=== PATIENT | male | born 1955 | race African-American/Black ===

== ENCOUNTER 2021-12-26 19:15 | Emergency (ER) | payer OTHER, MEDICAID ==
[~2021-12-26] VITALS: Ht 180.3 cm; Wt 70.0 kg
[2021-12-26 19:26] VITALS: BP 144/88
[2021-12-26] MEDS ORDERED: SODIUM CHLORIDE 0.9% 1000ML BAG (SEPSIS BOLUS) IV ONE (20:00)
== END 2021-12-26 21:21 | disposition left against medical advice (07) ==
LOC: ER 19:15
DX: J45.901 Unspecified asthma with (acute) exacerbation (principal); R06.00 Dyspnea, unspecified; I11.0 Hypertensive heart disease with heart failure; I50.9 Heart failure, unspecified
CPT/HCPCS: 93005; 99283; J7030

== ENCOUNTER 2022-10-28 16:42 | Inpatient (IN) | payer MEDICARE, MEDICAID ==
[~2022-10-28] VITALS: Ht 177.8 cm; Wt 69.9 kg
[2022-10-28] MEDS ORDERED: ACETAMINOPHEN 325MG TABLET PO ONE (17:00)
[2022-10-28 17:15] LABS: BASOPHILS % 0.4 % (0.0-2.0); EOSINOPHILS % 1.2 % (0.0-5.0); HEMATOCRIT. 44.7 % (42.0-52.0); HEMOGLOBIN. 15.1 g/dL (14.0-18.0); LYMPHOCYTES % 11.4 % (20.0-50.0); MEAN CORPUSCULAR HEMOGLOBIN 30.7 pg (28.0-32.0); MEAN CORPUSCULAR VOLUME 90.9 fL (80.0-94.0); MEAN PLATELET VOLUME 7.7 fl (7.4-10.4); MONOCYTES % 11.7 % (2.0-8.0); NEUTROPHILS % 75.3 % (40.0-76.0); PLATELET 226 x1000/uL (130-400); RED BLOOD CELL COUNT 4.92 mill/uL (4.7-6.1); RED CELL DISTRIBUTION WIDTH 13.7 % (11.6-14.6)
[2022-10-28] MEDS ORDERED: IPRATROPIUM BROMIDE (0.02%) 0.5MG/2.5ML NEB HHN STA (17:19)
[2022-10-28] MEDS ORDERED: ALBUTEROL (0.083%) 2.5MG/3ML NEB HHN STA (17:19)
[2022-10-28] MEDS ORDERED: METHYLPREDNISOLONE SOD SUCC 125 MG/2 ML VIAL IV STA (17:19)
[2022-10-28 17:30] LABS: CHLORIDE 101 mEq/L (98-107)
[2022-10-28 17:58] LABS: BG BASE EXCESS 2.8 mmol/L (-2.0-2.0); BG FRACTION INSPIRED OXYGEN 28; BG HCO3 ACT 30.1 mmol/L (22.0-26.0); BG METHEMOGLOBIN 0.4 % (0.0-1.5); BG OXYGEN SATURATION 95.9 % (92.0-98.5); BG OXYHEMOGLOBIN 94.6 % (94.0-97.0); BG PCO2 57.1 mmHg (35.0-45.0); BG PO2 87.6 mmHg (75.0-100.0); BG SAMPLE SITE RIGHT RADIAL; BG TOTAL HEMOGLOBIN 15.2 g/dL (12.0-18.0); BG VENT MODE NASAL CANNULA
[2022-10-28] MEDS ORDERED: IPRATROPIUM BROMIDE (0.02%) 0.5MG/2.5ML NEB HHN NR (20:00)
[2022-10-28] MEDS ORDERED: ALBUTEROL (0.083%) 2.5MG/3ML NEB HHN NR (20:00)
[2022-10-29] MEDS ORDERED: MAGNESIUM/ALUMINUM HYDROXIDE/SIMETHICONE 30ML UDC PO PRN (10:15)
[2022-10-29] MEDS ORDERED: GUAIFENESIN 200MG/10ML SUGAR FREE UDC PO PRN (10:15)
[2022-10-29] MEDS ORDERED: DOCUSATE SODIUM 100MG CAPSULE PO PRN (10:15)
[2022-10-29] MEDS ORDERED: ACETAMINOPHEN 325MG TABLET PO PRN ×2 (10:15)
[2022-10-29] MEDS ORDERED: DEXTROSE 50% WATER 50ML SYRINGE IV PRN (10:15)
[2022-10-29] MEDS ORDERED: IPRATROPIUM/ALBUTEROL 0.5-3(2.5)MG/3ML NEB HHN PRN (10:15)
[2022-10-29] MEDS ORDERED: METHYLPREDNISOLONE SOD SUCC 40 MG/ML VIAL IV SCH (10:30)
[2022-10-29] MEDS ORDERED: BLOOD SUGAR DIAGNOSTIC STRIP TEST SCH (11:50)
[2022-10-29 12:00] VITALS: BP 149/88
[2022-10-29] MEDS: ENOXAPARIN 40MG/0.4ML SYR SUBCUT SCH (12:11)
[2022-10-29] MEDS: GUAIFENESIN 600MG ER TABLET PO SCH ×2 (12:11→21:34)
[2022-10-29] MEDS: BLOOD SUGAR DIAGNOSTIC STRIP TEST SCH ×3 (12:25→21:39)
[2022-10-29] MEDS ORDERED: AZITHROMYCIN 500 MG TABLET PO NR (12:30)
[2022-10-29] MEDS ORDERED: SODIUM CHLORIDE 0.9% 1,000 ML IV SCH (12:30)
[2022-10-29] MEDS ORDERED: LORAZEPAM 0.5MG TABLET PO NR (15:15)
[2022-10-29] MEDS: IPRATROPIUM/ALBUTEROL 0.5-3(2.5)MG/3ML NEB HHN SCH ×2 (15:30→20:22)
[2022-10-29 16:00] VITALS: BP 160/92
[2022-10-29] MEDS: CEFTRIAXONE 1,000 MG in DEXTROSE 5% WATER 50 ML IV SCH (16:02)
[2022-10-29 18:18] LABS: CLARITY URINE CLEAR (CLEAR); COLOR URINE YELLOW (YELLOW); KETONES URINE NEGATIVE (NEGATIVE); LEUKOCYTE ESTERASE URINE NEGATIVE (NEGATIVE); NITRITE URINE NEGATIVE (NEGATIVE); OCCULT BLOOD URINE 2+ (NEGATIVE); PH URINE 5.5 (4.5-8.0); PROTEIN URINE 3+ (NEGATIVE); SPECIFIC GRAVITY URINE 1.026 (1.005-1.030)
[2022-10-29 18:28] LABS: *AMPHETAMINES SCREEN URINE NEGATIVE (NEGATIVE); *BARBITURATES SCREEN URINE NEGATIVE (NEGATIVE); *BENZODIAZEPINES SCREEN URINE NEGATIVE (NEGATIVE); *COCAINE SCREEN URINE NEGATIVE (NEGATIVE); CANNABINOID URINE SCREEN PRESUMTIVE POSITIVE (NEGATIVE); METHADONE URINE SCREEN NEGATIVE (NEGATIVE); OPIATES URINE SCREEN NEGATIVE (NEGATIVE); PHENCYCLIDINE URINE SCREEN NEGATIVE (NEGATIVE)
[2022-10-29 20:00] VITALS: BP 149/75
[2022-10-29] MEDS: BUDESONIDE 0.5MG/2ML NEB HHN SCH (20:23)
[2022-10-29] MEDS: PANTOPRAZOLE 40MG DR TABLET PO SCH (21:34)
[2022-10-30] VITALS: BP 128/62
[2022-10-30] MEDS: IPRATROPIUM/ALBUTEROL 0.5-3(2.5)MG/3ML NEB HHN SCH ×4 (01:59→20:58)
[2022-10-30 04:00] VITALS: BP 132/84
[2022-10-30 06:47] LABS: HEMATOCRIT. 43.6 % (42.0-52.0); HEMOGLOBIN. 14.4 g/dL (14.0-18.0); MEAN CORPUSCULAR HEMOGLOBIN 30.2 pg (28.0-32.0); MEAN CORPUSCULAR VOLUME 91.5 fL (80.0-94.0); MEAN PLATELET VOLUME 8.6 fl (7.4-10.4); PLATELET 208 x1000/uL (130-400); RED BLOOD CELL COUNT 4.76 mill/uL (4.7-6.1); RED CELL DISTRIBUTION WIDTH 13.8 % (11.6-14.6)
[2022-10-30] MEDS: PANTOPRAZOLE 40MG DR TABLET PO SCH (06:47)
[2022-10-30] MEDS: BLOOD SUGAR DIAGNOSTIC STRIP TEST SCH ×4 (07:06→21:21)
[2022-10-30] MEDS: BUDESONIDE 0.5MG/2ML NEB HHN SCH ×2 (07:40→20:57)
[2022-10-30 08:00] VITALS: BP 126/70
[2022-10-30] MEDS: GUAIFENESIN 600MG ER TABLET PO SCH ×2 (08:11→21:52)
[2022-10-30] MEDS: AZITHROMYCIN 250 MG TABLET PO SCH (08:11)
[2022-10-30] MEDS ORDERED: METHYLPREDNISOLONE SOD SUCC 125 MG/2 ML VIAL IV SCH (09:00)
[2022-10-30 09:57] LABS: CHLORIDE 103 mEq/L (98-107)
[2022-10-30 10:14] LABS: HDL CHOLESTEROL 67 mg/dL (40-59); LDL CHOLESTEROL 109 mg/dL (5-100); T4 FREE 0.87 ng/dL (0.76-1.46)
[2022-10-30 12:00] VITALS: BP 156/92
[2022-10-30] MEDS: CLONIDINE 0.1MG TABLET PO PRN (13:19)
[2022-10-30] MEDS: ENOXAPARIN 40MG/0.4ML SYR SUBCUT SCH (13:20)
[2022-10-30] MEDS: CEFTRIAXONE 1,000 MG in DEXTROSE 5% WATER 50 ML IV SCH (13:25)
[2022-10-30] MEDS: ACETYLCYSTEINE 200MG/ML 20% VIAL 4ML INH SCH ×2 (14:00→20:58)
[2022-10-30] MEDS ORDERED: HYDR25TA PO (14:36)
[2022-10-30] MEDS ORDERED: ATOR40TA70 PO (14:36)
[2022-10-30] MEDS ORDERED: AMLO10TA80 PO (14:36)
[2022-10-30] MEDS ORDERED: ATORVASTATIN CALCIUM 40MG TABLET PO SCH (14:45)
[2022-10-30 16:00] VITALS: BP 141/98
[2022-10-30] MEDS ORDERED: SODIUM CHLORIDE 0.45% 1,000 ML IV ONE (16:30)
[2022-10-30 17:18] LABS: PLATELET ESTIMATE NORMAL
[2022-10-30] MEDS: HYDROCHLOROTHIAZIDE 25MG TABLET PO SCH (18:17)
[2022-10-30] MEDS: AMLODIPINE 10MG TABLET PO SCH (18:17)
[2022-10-30] MEDS: METHYLPREDNISOLONE SOD SUCC 125 MG/2 ML VIAL IV SCH ×2 (18:20→21:49)
[2022-10-30 20:00] VITALS: BP 156/60
[2022-10-30] MEDS: FAMOTIDINE 20MG TABLET PO SCH (21:52)
[2022-10-30] MEDS: ATORVASTATIN CALCIUM 40MG TABLET PO SCH (21:52)
[2022-10-31 00:30] VITALS: BP 147/93
[2022-10-31] MEDS: IPRATROPIUM/ALBUTEROL 0.5-3(2.5)MG/3ML NEB HHN SCH ×4 (00:51→21:32)
[2022-10-31] MEDS: METHYLPREDNISOLONE SOD SUCC 125 MG/2 ML VIAL IV SCH ×4 (03:05→22:00)
[2022-10-31 04:21] LABS: HEMATOCRIT. 42.9 % (42.0-52.0); HEMOGLOBIN. 14.4 g/dL (14.0-18.0); MEAN CORPUSCULAR HEMOGLOBIN 30.3 pg (28.0-32.0); MEAN CORPUSCULAR VOLUME 90.4 fL (80.0-94.0); MEAN PLATELET VOLUME 7.9 fl (7.4-10.4); PLATELET 218 x1000/uL (130-400); RED BLOOD CELL COUNT 4.75 mill/uL (4.7-6.1); RED CELL DISTRIBUTION WIDTH 13.8 % (11.6-14.6)
[2022-10-31 05:03] VITALS: BP 149/84
[2022-10-31 05:15] LABS: CHLORIDE 99 mEq/L (98-107)
[2022-10-31] MEDS: BLOOD SUGAR DIAGNOSTIC STRIP TEST SCH ×4 (06:14→22:07)
[2022-10-31] MEDS: HYDROCHLOROTHIAZIDE 25MG TABLET PO SCH (07:56)
[2022-10-31] MEDS: AMLODIPINE 10MG TABLET PO SCH (07:56)
[2022-10-31] MEDS: AZITHROMYCIN 250 MG TABLET PO SCH (07:57)
[2022-10-31] MEDS: BUDESONIDE 0.5MG/2ML NEB HHN SCH ×2 (07:57→21:32)
[2022-10-31] MEDS: ACETYLCYSTEINE 200MG/ML 20% VIAL 4ML INH SCH ×3 (07:57→21:32)
[2022-10-31] MEDS: FAMOTIDINE 20MG TABLET PO SCH ×2 (07:57→22:02)
[2022-10-31] MEDS: GUAIFENESIN 600MG ER TABLET PO SCH ×2 (07:57→22:02)
[2022-10-31 08:05] VITALS: BP 167/82
[2022-10-31] MEDS ORDERED: MONT-46 PO (10:09)
[2022-10-31] MEDS ORDERED: DOCU250C14 PO (10:11)
[2022-10-31] MEDS ORDERED: OMEP20TA23 PO (10:12)
[2022-10-31] MEDS ORDERED: GABA-532 PO (10:12)
[2022-10-31] MEDS ORDERED: VITAMIN D PO (10:14)
[2022-10-31] MEDS: ENOXAPARIN 40MG/0.4ML SYR SUBCUT SCH (10:16)
[2022-10-31 10:24] LABS: PLATELET ESTIMATE NORMAL
[2022-10-31 12:00] VITALS: BP 170/79
[2022-10-31] MEDS: CEFTRIAXONE 1,000 MG in DEXTROSE 5% WATER 50 ML IV SCH (14:28)
[2022-10-31 16:00] VITALS: BP 161/95
[2022-10-31] MEDS ORDERED: HYDROCHLOROTHIAZIDE 25MG TABLET PO SCH (17:00)
[2022-10-31 20:00] VITALS: BP 155/82
[2022-10-31] MEDS: ATORVASTATIN CALCIUM 40MG TABLET PO SCH (22:01)
[2022-10-31] MEDS: HYDRALAZINE HCL 50MG TABLET PO SCH (22:01)
[2022-11-01] VITALS: BP 156/97
[2022-11-01] MEDS: IPRATROPIUM/ALBUTEROL 0.5-3(2.5)MG/3ML NEB HHN SCH ×2 (02:01→09:20)
[2022-11-01] MEDS: METHYLPREDNISOLONE SOD SUCC 125 MG/2 ML VIAL IV SCH ×2 (03:19→08:58)
[2022-11-01 04:00] VITALS: BP 148/78
[2022-11-01] MEDS: BLOOD SUGAR DIAGNOSTIC STRIP TEST SCH ×2 (06:17→11:37)
[2022-11-01 06:19] LABS: HEMATOCRIT. 46.6 % (42.0-52.0); HEMOGLOBIN. 15.7 g/dL (14.0-18.0); MEAN CORPUSCULAR HEMOGLOBIN 30.8 pg (28.0-32.0); MEAN CORPUSCULAR VOLUME 91.3 fL (80.0-94.0); MEAN PLATELET VOLUME 8.1 fl (7.4-10.4); PLATELET 220 x1000/uL (130-400); RED BLOOD CELL COUNT 5.11 mill/uL (4.7-6.1); RED CELL DISTRIBUTION WIDTH 13.5 % (11.6-14.6)
[2022-11-01 07:59] LABS: CHLORIDE 95 mEq/L (98-107)
[2022-11-01 08:00] VITALS: BP 181/81
[2022-11-01] MEDS: GUAIFENESIN 600MG ER TABLET PO SCH (08:57)
[2022-11-01] MEDS: AZITHROMYCIN 250 MG TABLET PO SCH (08:58)
[2022-11-01] MEDS: AMLODIPINE 10MG TABLET PO SCH (08:58)
[2022-11-01] MEDS: FAMOTIDINE 20MG TABLET PO SCH (08:58)
[2022-11-01 09:03] VITALS: BP 183/81
[2022-11-01] MEDS: BUDESONIDE 0.5MG/2ML NEB HHN SCH (09:20)
[2022-11-01] MEDS: HYDRALAZINE HCL 50MG TABLET PO SCH (10:26)
[2022-11-01] MEDS: ENOXAPARIN 40MG/0.4ML SYR SUBCUT SCH (11:34)
[2022-11-01 12:00] VITALS: BP 161/95
[2022-11-01] MEDS: CLONIDINE 0.1MG TABLET PO PRN (13:40)
[2022-11-01 13:43] VITALS: BP 161/95
[2022-11-01 19:02] LABS: PLATELET ESTIMATE NORMAL
== END 2022-11-01 14:55 | disposition home or self-care (01) | DRG 192 ==
LOC: ER 16:42 → 3WST 19:30 → EDBEDREQ 21:51 → EDBEDREQTM 21:51 → 3WST 10-30 05:40
PROVIDERS: ADMIT Internal Medicine; ATTEND Internal Medicine
PROC: 02HV33Z Insertion of Infusion Device into Superior Vena Cava, Percutaneous Approach (ICD-10-PCS; principal; 2022-10-31)
DX: J44.1 Chronic obstructive pulmonary disease with (acute) exacerbation (principal); I10 Essential (primary) hypertension; E86.0 Dehydration; F17.210 Nicotine dependence, cigarettes, uncomplicated; J31.0 Chronic rhinitis; E78.5 Hyperlipidemia, unspecified; R06.03 Acute respiratory distress; Z20.822 Contact with and (suspected) exposure to COVID-19; Z99.81 Dependence on supplemental oxygen; Z79.899 Other long term (current) drug therapy
CPT/HCPCS: 36415; 36573; 36600; 71045; 71250; 80048; 80053; 80061; 80305; 81003; 82375; 82805; 82962; 83036; 83605; 83880; 84145; 84439; 84443; 84484; 85025; 85379; 87426; 87804; 93005; 93306; 93970; 94640; 99285; C1725; C9803; J0696; J1650; J2920; J2930; J7060; J7626